=== PATIENT | male | born 1935 | race Caucasian/White ===

== ENCOUNTER 2018-10-24 22:16 | Emergency (ER) | payer MEDICARE ==
--- NOTE | 2018-10-24 22:25 | ED PDOC ---
Arrival/HPI - General Time Seen by Provider: 10/24/18 22:17 Historian: Patient - History of Present Illness Narrative History of Present Illness (Text): 10/24/18 22:24 Macey Meyers is an 83 year old male, with no significant past medical history, who presents to the ED brought in by EMS for public intoxication tonight. Patient was found outside an apartment building inebriated. Patient admits to drinking alcohol this evening and states he feels fine. Patient denies any fever, chest pain, shortness of breath, nausea, vomiting, headache, dizziness, or any other somatic complaints. Symptom Onset: Gradual Symptom Course: Unchanged Activities at Onset: Light Context: Home Past Medical History - Provider Review Nursing Documentation Reviewed: Yes Family/Social History - Physician Review Nursing Documentation Reviewed: Yes Family/Social History: Unknown Family HX Allergies/Home Meds Allergies/Adverse Reactions: Allergies Unobtainable Allergy (Verified 10/24/18 22:42) Review of Systems - Physician Review All systems were reviewed & negative as marked: Yes - Review of Systems Constitutional: Normal. absent: Fevers Eyes: Normal ENT: Normal Respiratory: Normal. absent: SOB, Cough Cardiovascular: Normal. absent: Chest Pain Gastrointestinal: Normal. absent: Abdominal Pain, Diarrhea, Nausea, Vomiting Genitourinary Male: Normal. absent: Dysuria, Frequency, Hematuria, Urinary Output Changes Musculoskeletal: Normal. absent: Back Pain, Neck Pain Skin: Normal. absent: Rash Neurological: Normal. absent: Headache, Dizziness Endocrine: Normal Hemo/Lymphatic: Normal Psychiatric: Normal Physical Exam Vital Signs Reviewed: Yes Temperature: Afebrile Blood Pressure: Normal Pulse: Regular Respiratory Rate: Normal Appearance: Positive for: Well-Appearing, Non-Toxic, Comfortable Pain Distress: None Mental Status: Positive for: Alert and Oriented X 3 - Systems Exam Head: Present: Atraumatic, Normocephalic Pupils: Present: PERRL Extroacular Muscles: Present: EOMI Conjunctiva: Present: Normal Mouth: Present: Moist Mucous Membranes Neck: Present: Normal Range of Motion Respiratory/Chest: Present: Clear to Auscultation, Good Air Exchange. No: Respiratory Distress, Accessory Muscle Use Cardiovascular: Present: Regular Rate and Rhythm, Normal S1, S2. No: Murmurs Abdomen: No: Tenderness, Distention, Peritoneal Signs Back: Present: Normal Inspection Upper Extremity: Present: Normal Inspection. No: Cyanosis, Edema Lower Extremity: Present: Normal Inspection. No: Edema Neurological: Present: GCS=15, CN II-XII Intact, Speech Normal Skin: Present: Warm, Dry, Normal Color. No: Rashes Psychiatric: Present: Alert, Oriented x 3, Normal Insight, Normal Concentration Medical Decision Making ED Course and Treatment: 10/24/18 22:24 Impression: 83 year old male brought in for public intoxication. Plan: -- Reassess and disposition Progress Notes: 10/25/18 00:05 Patient became uncooperative/verbally abusive /attempting to leave the room requiring sedation for his own protection 10/25/18 06:59 Case endorsed to /pending sobriety/final disposition - Scribe Statement The provider has reviewed the documentation as recorded by the Arvind Souza Provider Scribe Attestation: All medical record entries made by the Scribe were at my direction and personally dictated by me. I have reviewed the chart and agree that the record accurately reflects my personal performance of the history, physical exam, medical decision making, and the department course for this patient. I have also personally directed, reviewed, and agree with the discharge instructions and disposition. Disposition/Present on Arrival - Present on Arrival Any Indicators Present on Arrival: No - Disposition Have Diagnosis and Disposition been Completed?: No Diagnosis: Alcohol intoxication Disposition Time: 07:00 Condition: STABLE
[2018-10-25 05:54] VITALS: TEMP 97.3; O2SAT 97
[2018-10-25 08:01] VITALS: BP 126/87; PULSE 64; RESP 18
--- NOTE | 2018-10-25 08:04 | ED PDOC ---
Physical Exam Vital Signs Temp Pulse Resp BP Pulse Ox 10/25/18 05:52 97.3 F L 94 H 16 111/73 97 10/25/18 02:16 92 H 18 149/74 98 Medical Decision Making ED Course and Treatment: 10/25/18 07:01 patient signed out to me by Dr. Lu, pending sobriety. 10/25/18 14:38 pt reassesed clinically sober. stable for dc. spoke to pt with rn analyst [employer]. stablef or dc. no medical complaint - Medication Orders Current Medication Orders: Discontinued Medications Haloperidol Lactate (Haldol) 5 mg IM STAT STA; Protocol Stop: 10/24/18 23:22 Last Admin: 10/24/18 23:40 Dose: 5 mg IM Administration Charges Document 10/24/18 23:40 HB (Rec: 10/25/18 03:46 HB [id number]) Injection Site MAR Injection Site Left Deltoid Charges for Administration # of IM Administrations 1 Lorazepam (Ativan) 2 mg IM ONCE ONE Stop: 10/24/18 23:22 Last Admin: 10/24/18 23:40 Dose: 2 mg IM Administration Charges Document 10/24/18 23:40 HB (Rec: 10/25/18 03:45 HB [id number]) Injection Site MAR Injection Site Left Deltoid Charges for Administration # of IM Administrations 1 - Scribe Statement The provider has reviewed the documentation as recorded by the Arvind Luciano All medical record entries made by the Scribe were at my direction and personally dictated by me. I have reviewed the chart and agree that the record accurately reflects my personal performance of the history, physical exam, medical decision making, and the department course for this patient. I have also personally directed, reviewed, and agree with the discharge instructions and disposition. Disposition/Present on Arrival - Present on Arrival Any Indicators Present on Arrival: No History of DVT/PE: No History of Uncontrolled Diabetes: No Urinary Catheter: No History of Decub. Ulcer: No History Surgical Site Infection Following: None - Disposition Have Diagnosis and Disposition been Completed?: Yes Diagnosis: Alcohol intoxication Disposition: HOME/ ROUTINE Disposition Time: 08:00 Condition: STABLE Discharge Instructions (ExitCare): Alcohol Use - When Is Drinking a Problem?, Effects of Alcohol on Your Health Referrals: Alcoholics Anonymous [Outside] - Follow up with primary PCP,NO [Primary Care Provider] - Follow up with primary Forms: [employer] (Greek)
== END 2018-10-25 08:02 | disposition home or self-care (01) ==
LOC: ED 22:16 → MERGE 22:16 → ED 10-25 08:02
DX: F10.129 Alcohol abuse with intoxication, unspecified (principal)
CPT/HCPCS: 96372; 99283; J1630; J2060